=== PATIENT | male | born 2000 | race Caucasian/White ===

== ENCOUNTER 2025-07-18 18:57 | Emergency (ER) | payer MEDICAID ==
[~2025-07-18] VITALS: Ht 182.9 cm; Wt 109.1 kg
[2025-07-18 19:03] VITALS: BP 126/89; PULSE 96; RESP 18; TEMP 98; O2SAT 99
[2025-07-18] MEDS: ACETAMINOPHEN 500 MG TABLET PO ONE (21:05)
[2025-07-18] MEDS: CEPHALEXIN MONOHYDRATE 500 MG CAPSULE PO ONE (21:05)
[2025-07-18] MEDS: LIDOCAINE 1% 10 ML VIAL SQ ONE (21:05)
[2025-07-18] MEDS: IBUPROFEN 600 MG TABLET PO ONE (21:05)
[2025-07-18] MEDS: BACITRACIN 0.9 GM PACKET OINTMENT TP ONE (21:05)
[2025-07-18] MEDS ORDERED: CEPH-558 PO (21:50)
[2025-07-18] MEDS ORDERED: IBUP-1554 PO (21:50)
[2025-07-18] MEDS ORDERED: ACET-2080 PO (21:50)
[2025-07-18] MEDS ORDERED: BACI28.410 TP (21:50)
== END 2025-07-18 22:04 | disposition home or self-care (01) ==
LOC: EMS 18:57
DX: L03.031 Cellulitis of right toe (principal); Z79.899 Other long term (current) drug therapy
CPT/HCPCS: 99284; 10060; J3490; 11730